=== PATIENT | female | born 1980 | race Caucasian/White ===

== ENCOUNTER → 2017-12-22 | Day surgery (SDC) | payer OTHER ==
[~2017-12-22] MED LIST: IRON325 PO; PRENATAL VITAM1 EA10 PO; SERTRALINE HCL50 MG PO
== END | disposition home or self-care (01) ==
LOC: LITH 10:39
DX: N20.0 Calculus of kidney (principal); Z87.440 Personal history of urinary (tract) infections; Z87.442 Personal history of urinary calculi; Z80.0 Family history of malignant neoplasm of digestive organs; Z90.3 Acquired absence of stomach [part of]; Z90.49 Acquired absence of other specified parts of digestive tract; Z98.890 Other specified postprocedural states; Z88.0 Allergy status to penicillin; Z88.8 Allergy status to other drugs, medicaments and biological substances